=== PATIENT | female | born 1945 | race Caucasian/White ===

== ENCOUNTER 2017-06-12 13:48 | Outpatient (RCR) | payer OTHER | END 2017-06-20 | disposition home or self-care (01) | LOC: PTY 13:48 | DX: Z85.3 Personal history of malignant neoplasm of breast (principal) ==

== ENCOUNTER 2017-07-16 15:45 | Outpatient (RCR) | payer OTHER ==
[2017-07-16] MEDS ORDERED: ATIVAN0.5 MG ORAL (21:50)
== END 2017-07-21 | disposition home or self-care (01) ==
LOC: PTY 15:45
DX: Z85.3 Personal history of malignant neoplasm of breast (principal)

== ENCOUNTER 2017-07-16 18:22 | Emergency (ER) | payer OTHER ==
[~2017-07-16] VITALS: Ht 170.2 cm; Wt 90.7 kg
[2017-07-16 20:16] LABS: APPEARANCE,URINE CLEAR; KETONES,URINE NEGATIVE (NEGATIVE); LEUKOCYTE ESTERASE ,URINE 3+ (NEGATIVE); NITRITE,URINE NEGATIVE (NEGATIVE); PH,URINE 8 (4.5-8.0); PROTEIN,URINE NEGATIVE (NEGATIVE); UROBILINOGEN,URINE NORMAL MG/DL (0.0-1.0)
[2017-07-16 20:18] LABS: BASOPHILS % (AUTO) 0.8 % (0.0-2.0); EOSINOPHILS % (AUTO) 5.2 % (0.0-3.0); LYMPHOCYTES % (AUTO) 14.4 % (20.0-45.0); MEAN CORPUSCULAR HEMOGLOBIN 29.2 PG (27.0-31.0); MEAN CORPUSCULAR HGB CONC 32.7 G/DL (32.0-36.0); MEAN CORPUSCULAR VOLUME 89 FL (80-99); MEAN PLATELET VOLUME 7.9 FL (6.5-10.1); MONOCYTES % (AUTO) 7.8 % (1.0-10.0); NEUTROPHILS % (AUTO) 71.7 % (45.0-75.0); PLATELET COUNT 322 K/UL (150-450); RED BLOOD COUNT 4.82 M/UL (4.20-5.40); RED CELL DISTRIBUTION WIDTH 12.1 % (11.6-14.8); WHITE BLOOD COUNT 8.3 K/UL (4.8-10.8)
[2017-07-16 20:28] LABS: ANION GAP 11 mmol/L (5-15); CALCIUM 9.9 MG/DL (8.5-10.1); CARBON DIOXIDE 28 MMOL/L (21-32); CHLORIDE 101 MMOL/L (98-107); CREATININE 0.9 MG/DL (0.55-1.30); POTASSIUM 4.1 MMOL/L (3.5-5.1); SODIUM 140 MMOL/L (136-145)
[2017-07-16 20:30] LABS: BACTERIA,URINE FEW /HPF; RBC,URINE 0-2 /HPF (0 - 2); SQUAMOUS EPITHELIAL CELL,UR FEW /LPF (NONE/OCC)
[2017-07-16 20:30] LABS: ALANINE AMINOTRANSFERASE 62 U/L (12-78); ALBUMIN/GLOBULIN RATIO 1.1 (1.0-2.7); ASPARTATE AMINO TRANSFERASE 25 U/L (15-37); INR 2.8 (0.9-1.1); LIPASE 206 U/L (73-393); PROTHROMBIN TIME 30.1 SEC (9.30-11.50); TOTAL PROTEIN 8.1 G/DL (6.4-8.2)
[2017-07-16 21:00] VITALS: BP 149/77
[2017-07-16] MEDS ORDERED: ATIVAN0.5 MG ORAL (21:50)
[2017-07-16 22:40] VITALS: BP 140/76
--- NOTE | 2017-07-16 23:06 | Emergency Room Report ---
History of Present Illness General Chief Complaint: Hypertension Source: Patient Present Illness HPI The patient is a 71-year-old female with a history of hypertension, breast cancer and left upper extremity lymphedema presenting for high blood pressure. She states that she was being seen by physical therapy and was told to come to emergency department due to high blood pressure. She states that systolic blood pressure was approximately 190. She takes a combination antihypertensive medication but is unsure of name. She admits to taking it today. She states her blood pressure increases with anxiety. Admits to history of anxiety but has not been taking any medications for it. Also admits to history of heart valve disease but is unsure of name. She states that she takes anticoagulation for this. She denies other symptoms including fever, chills, shortness of breath, chest pain, headache Allergies: Coded Allergies: LATEX (Verified Allergy, Unknown, RASH,SWELLING, 08/03/15) Patient History Past Medical History: see triage record, HTN Pertinent Family History: none Reviewed Nursing Documentation: PMH: Agreed, PSxH: Agreed Nursing Documentation-PMH Hx Cardiac Problems: Yes - A-fib; Fibromyalgia Hx Hypertension: Yes Hx Diabetes: Yes Hx Cancer: Yes - Breast - left mastectomy in 1999 Review of Systems All Other Systems: negative except mentioned in HPI Physical Exam Vital Signs Date Time Temp Pulse Resp B/P (MAP) Pulse Ox O2 Delivery O2 Flow Rate FiO2 07/16/17 18:34 98.4 85 18 157/79 100 Room Air Sp02 EP Interpretation: reviewed, normal General Appearance: no apparent distress, alert, GCS 15, non-toxic Head: normocephalic, atraumatic Eyes: bilateral eye normal inspection, bilateral eye PERRL ENT: hearing grossly normal, normal pharynx, no angioedema, normal voice, uvula midline Neck: full range of motion, supple/symm/no masses Respiratory: chest non-tender, lungs clear, normal breath sounds, speaking full sentences Cardiovascular #1: regular rate, rhythm, no edema Musculoskeletal: back normal, gait/station normal, normal range of motion, swelling - L arm Neurologic: alert, oriented x3, responsive, motor strength/tone normal, sensory intact, speech normal Psychiatric: judgement/insight normal, memory normal, no suicidal/homicidal ideation, anxious Medical Decision Making PA Attestation Dr. Whitaker is my supervising physician. Patient management was discussed with my supervising physician Diagnostic Impression: Primary Impression: Premature atrial contraction Additional Impressions: Anxiety Hypertension ER Course The patient is a 71-year-old female with a history of hypertension, breast cancer and left upper extremity lymphedema presenting for high blood pressure Differential diagnoses considered but not limited to: HTN urgency/emergency, anxiety, ICH, ACS, essential HTN, among others PE: HTN around 150/70. Otherwise WNL. Pt appears anxious L arm is wrapped for lymphedema. Lungs CTA bilat No MRG CT head unremarkable. No bleeding. EKG shows normal sinus rhythm with premature atrial contractions. Blood work is unremarkable except for hyperglycemia of 200. Troponin essentially negative. Coags appropriate for a therapeutic range The patient was informed of all of these results and will be discharged home. She will be treated with anxiolytic and needs to followup with primary doctor. ER precautions are given Laboratory Tests Test 07/16/17 19:39 07/16/17 19:47 Urine Color Yellow Urine Appearance Clear Urine pH 8 (4.5-8.0) Urine Specific Dexter 1.010 (1.005-1.035) Urine Protein Negative (NEGATIVE) Urine Glucose (UA) 3+ (NEGATIVE) H Urine Ketones Negative (NEGATIVE) Urine Occult Blood Negative (NEGATIVE) Urine Nitrite Negative (NEGATIVE) Urine Bilirubin Negative (NEGATIVE) Urine Urobilinogen Normal MG/DL (0.0-1.0) Urine Leukocyte Esterase 3+ (NEGATIVE) H Urine RBC 0-2 /HPF (0 - 2) Urine WBC 2-4 /HPF (0 - 2) Urine Squamous Epithelial Cells Few /LPF (NONE/OCC) Urine Bacteria Few /HPF (NONE) White Blood Count 8.3 K/UL (4.8-10.8) Red Blood Count 4.82 M/UL (4.20-5.40) Hemoglobin 14.1 G/DL (12.0-16.0) Hematocrit 43.2 % (37.0-47.0) Mean Corpuscular Volume 89 FL (80-99) Mean Corpuscular Hemoglobin 29.2 PG (27.0-31.0) Mean Corpuscular Hemoglobin Concent 32.7 G/DL (32.0-36.0) Red Cell Distribution Width 12.1 % (11.6-14.8) Platelet Count 322 K/UL (150-450) Mean Platelet Volume 7.9 FL (6.5-10.1) Neutrophils (%) (Auto) 71.7 % (45.0-75.0) Lymphocytes (%) (Auto) 14.4 % (20.0-45.0) L Monocytes (%) (Auto) 7.8 % (1.0-10.0) Eosinophils (%) (Auto) 5.2 % (0.0-3.0) H Basophils (%) (Auto) 0.8 % (0.0-2.0) Prothrombin Time 30.1 SEC (9.30-11.50) H Prothrombin Time INR 2.8 (0.9-1.1) H PTT 39 SEC (23-33) H Sodium Level 140 MMOL/L (136-145) Potassium Level 4.1 MMOL/L (3.5-5.1) Chloride Level 101 MMOL/L (98-107) Carbon Dioxide Level 28 MMOL/L (21-32) Anion Gap 11 mmol/L (5-15) Blood Urea Nitrogen 33 mg/dL (7-18) H Creatinine 0.9 MG/DL (0.55-1.30) Estimate Glomerular Filtration Rate mL/min (>60) Glucose Level 197 MG/DL (74-106) H Calcium Level 9.9 MG/DL (8.5-10.1) Total Bilirubin 0.2 MG/DL (0.2-1.0) Aspartate Amino Transferase (AST) 25 U/L (15-37) Alanine Aminotransferase (ALT) 62 U/L (12-78) Alkaline Phosphatase 101 U/L (46-116) Troponin I < 0.017 ng/mL (0.000-0.056) Total Protein 8.1 G/DL (6.4-8.2) Albumin 4.2 G/DL (3.4-5.0) Globulin 3.9 g/dL Albumin/Globulin Ratio 1.1 (1.0-2.7) Lipase 206 U/L (73-393) Lab Results Impression CBC unremarkable. No leukocytosis CMP shows hyperglycemia. Otherwise unremarkable Troponin essentially negative EKG Diagnostic Results EP Interpretation: Sinus with PAC Rate: normal - 90 Rhythm: NSR - with PAC ST Segments: no acute changes ASA given to the pt in ED: No PA Scribe Text EKG was reviewed and read with my supervising physician. No acute ST segment changes are seen. Normal rate with PACs CT/MRI/US Diagnostic Results CT/MRI/US Diagnostic Results : Imaging Test Ordered: CT head Impression Unremarkable Last Vital Signs Date Time Temp Pulse Resp B/P (MAP) Pulse Ox O2 Delivery O2 Flow Rate FiO2 07/16/17 18:34 98.4 85 18 157/79 100 Room Air Status: improved Disposition: HOME, SELF-CARE Condition: Improved Scripts Lorazepam* (ATIVAN*) 0.5 Mg Tablet 0.5 MG ORAL THREE TIMES A DAY, #12 TAB Prov: NUBIA RICH 07/16/17 Patient Instructions: Premature Atrial Contraction, Hypertension Additional Instructions: I discussed my findings with the patient. All questions and concerns have been answered. Treatment and medication compliance have been addressed. I advised the patient that they need to follow up with primary doctor and cardiology as soon as possible. Return to ED if symptoms worsen, new symptoms arise, or if needed for any reason. Patient verbalized understanding of discharge instructions. NUBIA RICH Jul 16, 2017 23:06
--- NOTE | 2017-07-17 10:43 | Diagnostic Imaging Report ---
Indication: Headache Technique: Contiguous 5 mm thick transaxial imaging of the head obtained in a Siemens Sensation [address] scanner. Soft tissue and bone windows generated. Automatic Exposure Control was utilized. Total Dose length Product (DLP): 1383.[address] Dose Index Volume (CTDIvol): 70.38 mGy Comparison: 07/27/2011 Findings: There is mild prominence of the ventricles, basal cisterns, and cerebral sulci consistent with atrophy. Mild, nonspecific, white matter hypoattenuation is noted throughout the brain consistent with chronic small vessel disease. There is no midline shift, edema, acute hemorrhage, mass effect, or abnormal extra-axial fluid collections. Irregularity of the temporal mandibular joints demonstrated bilaterally consistent with arthrosis. Impression: No acute intracranial bleed, mass effect or edema. Mild atrophy of the brain. Nonspecific white matter hypoattenuation probably due to chronic small vessel disease. Osteoarthrosis TMJs The CT scanner at [facility] is accredited by the [employer] and the scans are performed using dose optimization techniques as appropriate to a performed exam including Automatic Exposure control.
--- NOTE | 2017-07-17 11:53 | Diagnostic Imaging Report ---
Indication: Chest pain Comparison: 07/22/2011 A single view chest radiograph was obtained. Findings: There are surgical clips in the left axilla. Left breast distortion noted. Lungs are clear. Heart size is normal. The bones are diffusely osteopenic. IMPRESSION: Stigmata of previous left breast carcinoma/mastectomy and axillary dissection. No acute disease
--- NOTE | 2017-07-17 12:52 | Cardiology Report ---
APPROVED REPORT EKG Measurement Heart [id number] Sinus rhythm with premature atrial complexes Cannot rule out Anterior infarct, age undetermined Abnormal ECG
== END 2017-07-16 22:40 | disposition home or self-care (01) ==
LOC: EMR 19:01
DX: I49.1 Atrial premature depolarization (principal); I10 Essential (primary) hypertension; F41.9 Anxiety disorder, unspecified; E11.9 Type 2 diabetes mellitus without complications; I48.91 Unspecified atrial fibrillation; M79.7 Fibromyalgia; Z85.3 Personal history of malignant neoplasm of breast; Z90.12 Acquired absence of left breast and nipple; Z91.040 Latex allergy status
CPT/HCPCS: 36415; 70450; 71010; 80053; 81003; 83690; 84484; 85025; 85610; 85730; 93005; 99284

== ENCOUNTER 2017-09-17 14:45 | Outpatient (RCR) | payer OTHER ==
[~2017-09-17 14:45] MED LIST: ATIVAN0.5 MG ORAL
== END 2017-09-18 | disposition home or self-care (01) ==
LOC: PTY 14:45
DX: I97.2 Postmastectomy lymphedema syndrome (principal); Z85.3 Personal history of malignant neoplasm of breast

== ENCOUNTER 2017-10-03 15:15 | Outpatient (RCR) | payer OTHER | END 2017-10-19 | disposition home or self-care (01) | LOC: PTY 15:15 | DX: I97.2 Postmastectomy lymphedema syndrome (principal); Z85.3 Personal history of malignant neoplasm of breast; Z90.12 Acquired absence of left breast and nipple ==

== ENCOUNTER 2017-10-25 13:00 | Outpatient (RCR) | payer OTHER | END 2017-11-18 | disposition home or self-care (01) | LOC: PTY 13:00 | DX: I97.2 Postmastectomy lymphedema syndrome (principal); Z85.3 Personal history of malignant neoplasm of breast; Z90.12 Acquired absence of left breast and nipple ==

== ENCOUNTER 2017-11-19 13:51 | Outpatient (RCR) | payer OTHER | END 2017-12-19 | disposition home or self-care (01) | LOC: PTY 13:51 | DX: Z85.3 Personal history of malignant neoplasm of breast (principal) ==

== ENCOUNTER 2017-12-23 11:00 | Outpatient (RCR) | payer OTHER | END 2018-01-18 | disposition home or self-care (01) | LOC: PTY 11:00 | DX: I97.2 Postmastectomy lymphedema syndrome (principal); Z85.3 Personal history of malignant neoplasm of breast; Z90.12 Acquired absence of left breast and nipple ==

== ENCOUNTER 2018-01-20 11:00 | Outpatient (RCR) | payer OTHER | END 2018-02-18 | disposition home or self-care (01) | LOC: PTY 11:00 | DX: I97.2 Postmastectomy lymphedema syndrome (principal); Z85.3 Personal history of malignant neoplasm of breast; Z90.12 Acquired absence of left breast and nipple ==

== ENCOUNTER 2018-02-19 11:00 | Outpatient (RCR) | payer OTHER | END 2018-03-21 | disposition home or self-care (01) | LOC: PTY 11:00 | DX: I97.2 Postmastectomy lymphedema syndrome (principal); Z85.3 Personal history of malignant neoplasm of breast; Z90.12 Acquired absence of left breast and nipple ==

== ENCOUNTER 2018-03-26 12:30 | Outpatient (RCR) | payer OTHER | END 2018-04-20 | disposition home or self-care (01) | LOC: PTY 12:30 | PROVIDERS: ATTEND Internal Medicine | DX: I89.0 Lymphedema, not elsewhere classified (principal); Z85.3 Personal history of malignant neoplasm of breast; Z90.12 Acquired absence of left breast and nipple ==

== ENCOUNTER 2018-04-30 14:10 | Outpatient (RCR) | payer OTHER | END 2018-05-21 | disposition home or self-care (01) | LOC: PTY 14:10 | PROVIDERS: ATTEND Internal Medicine | DX: I89.0 Lymphedema, not elsewhere classified (principal); Z85.3 Personal history of malignant neoplasm of breast; Z90.12 Acquired absence of left breast and nipple ==

== ENCOUNTER 2018-05-30 12:50 | Outpatient (RCR) | payer OTHER | END 2018-06-20 | disposition home or self-care (01) | LOC: PTY 12:50 | PROVIDERS: ATTEND Internal Medicine | DX: C50.012 Malignant neoplasm of nipple and areola, left female breast (principal); I89.0 Lymphedema, not elsewhere classified ==